=== PATIENT | male | born 1995 | race African-American/Black ===

== ENCOUNTER 2024-12-06 16:29 | Inpatient (IN) ==
[2024-12-06] MEDS: NACL 0.9% W/KCL 20MEQ 1,000 ML IV SCH ×3 (17:40→23:24)
[2024-12-06] MEDS: INSULIN REGULAR, HUMAN 50 UNIT in 0.9 % SODIUM CHLORIDE 99.5 ML IV SCH (17:57)
[2024-12-06 18:06] LABS: Bacteria,Urine Rare /hpf (0); Bilirubin,Urine Small mg/dL (Negative); Color,Urine Yellow; Glucose,Urine (UA) 500 mg/dL (Negative); Ketones,Urine >=160 mg/dL (Negative); Leukocyte Esterase,Urine Negative /uL (Negative); PH,Urine 5.5 (5.0-9.0); Protein,Urine 30 mg/dL (Negative); Specific Gravity,Urine 1.015 (1.000-1.035); Urobilinogen,Urine Normal
[2024-12-06 18:08] LABS: Anion Gap 30.0 (8.0-16.0); Blood Urea Nitrogen 13 mg/dL (6-20); Calcium 10.0 mg/dL (8.6-10.4); Carbon Dioxide 15 mmol/L (22-30); Chloride 91 mmol/L (96-108); Glucose 643 mg/dL (70-105); Potassium 3.8 mmol/L (3.3-5.1); Sodium 136 mmol/L (133-145)
[2024-12-06] MEDS: INSULIN REGULAR, HUMAN 1 UNIT/0.01 ML UNIT IV ONE (18:22)
[2024-12-06] MEDS ORDERED: NACL 0.9% W/KCL 20MEQ 1,000 ML IV SCH (18:45)
[2024-12-06] MEDS: MAG HYDROX/AL HYDROX/SIMETH 30 ML ORAL.SUSP PO ONE (19:02)
[2024-12-06] MEDS: ONDANSETRON 4 MG/2 ML VIAL IV ONE (19:02)
[2024-12-06] MEDS: FAMOTIDINE 20 MG TABLET PO ONE (19:02)
[2024-12-06] MEDS ORDERED: POTASSIUM CHLORIDE 40 MEQ in DEXTROSE 5% IN WATER 500 ML IV PRN (19:33)
[2024-12-06] MEDS ORDERED: MAGNESIUM SULFATE 2 GM/50 ML BAG IV PRN (19:33)
[2024-12-06] MEDS ORDERED: POTASSIUM CHLORIDE 20 MEQ TABLET PO PRN (19:33)
[2024-12-06] MEDS ORDERED: IPRATROPIUM/ALBUTEROL 3 ML AMPUL.NEB NEB PRN (19:33)
[2024-12-06] MEDS ORDERED: ONDANSETRON 4 MG/2 ML VIAL IV PRN (19:33)
[2024-12-06] MEDS ORDERED: SENNOSIDES 1 TABLET PO PRN (19:33)
[2024-12-06] MEDS: 0.9 % SODIUM CHLORIDE 1,000 ML IV SCH (19:46)
[2024-12-06] MEDS: METOCLOPRAMIDE 10 MG/2 ML VIAL IV PRN (20:38)
[2024-12-06] MEDS: INSULIN REGULAR, HUMAN 1 UNIT/0.01 ML UNIT ONE ×2 (20:59→21:51)
[2024-12-06] MEDS: NALTREXONE PO SCH (21:52)
[2024-12-06] MEDS: BUPROPION PO SCH (21:52)
[2024-12-06] MEDS: DOCUSATE SODIUM 100 MG CAPSULE PO SCH (21:52)
[2024-12-06] MEDS: ENOXAPARIN 40 MG/0.4 ML SYRINGE SQ SCH (22:00)
[2024-12-07] MEDS: INSULIN REGULAR, HUMAN 1 UNIT/0.01 ML UNIT ONE ×5 (01:31→23:15)
[2024-12-07] MEDS: DEXTROSE 5%-NS 1,000 ML IV SCH (02:45)
[2024-12-07] MEDS: GEMFIBROZIL 600 MG TABLET PO SCH (07:30)
[2024-12-07] MEDS: OMEPRAZOLE 20 MG CAPSULE PO SCH (08:04)
[2024-12-07 08:29] LABS: Basophils # (Auto) 0.04 K/mcL (0.00-0.30); Basophils % (Auto) 0.5 % (0.0-2.0); Eosinophils # (Auto) 0.13 K/mcL (0.00-0.70); Eosinophils % (Auto) 1.8 % (0.0-7.0); Hematocrit 41.5 % (40.1-51.0); Hemoglobin 13.2 g/dL (13.7-17.5); Lymphocytes # (Auto) 2.34 K/mcL (1.50-4.80); Lymphocytes % (Auto) 31.9 % (15.5-49.0); Mean Corpuscular HGB Conc 31.8 g/dL (31.0-36.0); Monocytes # (Auto) 0.95 K/mcL (0.10-0.90); Monocytes % (Auto) 13.0 % (1.0-12.0); Neutrophils % (Auto) 52.7 % (38.0-78.0); Platelet Count 347 K/mcL (140-440); RBC 5.67 M/mcL (4.63-6.08); WBC 7.3 K/mcL (4.5-11.0)
[2024-12-07 08:37] LABS: ALT/SGPT 92 U/L (<40); AST/SGOT 44 U/L (<40); Albumin 4.2 gm/dL (3.2-5.2); Albumin/Globulin Ratio 1.2 (1.0-2.3); Alkaline Phosphatase 55 U/L (39-117); Anion Gap 18.0 (8.0-16.0); Bilirubin,Direct 0.4 mg/dL (<0.3); Bilirubin,Total 0.9 mg/dL (0.1-1.0); Blood Urea Nitrogen 12 mg/dL (6-20); Calcium 9.3 mg/dL (8.6-10.4); Carbon Dioxide 21 mmol/L (22-30); Chloride 98 mmol/L (96-108); Globulin 3.5 gm/dL (2.2-3.7); Glucose 291 mg/dL (70-105); Phosphorous 2.9 mg/dL (2.5-4.5); Potassium 3.0 mmol/L (3.3-5.1); Sodium 137 mmol/L (133-145); Triglycerides 122 mg/dL (<150); Uric Acid 13.3 mg/dL (2.5-8.0)
[2024-12-07] MEDS ORDERED: CALCIUM CARBONATE 500 MG TAB.CHEW CHEWED PRN (09:05)
[2024-12-07] MEDS: POTASSIUM CHLORIDE 20 MEQ TABLET PO PRN (09:27)
[2024-12-07 10:01] LABS: Beta Hydroxybutyrate 3.71 mmol/L (<0.27)
[2024-12-07] MEDS: INSULIN REGULAR, HUMAN 1 UNIT/0.01 ML UNIT IV ONE ×3 (10:03→20:29)
[2024-12-07] MEDS: POTASSIUM CHLORIDE 20 MEQ in DEXTROSE 5% IN WATER 250 ML IV ONE (10:03)
[2024-12-07] MEDS: POTASSIUM CHLORIDE 10 MEQ/100 ML BAG IV SCH (10:05)
[2024-12-07] MEDS: BISMUTH SUBSALICYLATE 15 ML ORAL.SUSP PO ONE (12:10)
[2024-12-07 13:56] LABS: Anion Gap 21.0 (8.0-16.0); Blood Urea Nitrogen 12 mg/dL (6-20); Calcium 8.9 mg/dL (8.6-10.4); Carbon Dioxide 17 mmol/L (22-30); Chloride 97 mmol/L (96-108); Glucose 335 mg/dL (70-105); Potassium 3.0 mmol/L (3.3-5.1); Sodium 135 mmol/L (133-145)
[2024-12-07] MEDS: INSULIN GLARGINE, HUMAN 1 UNIT/0.01 ML SQ ONE ×3 (14:26→18:45)
[2024-12-07] MEDS: POTASSIUM CHLORIDE 40 MEQ in 0.45 % SODIUM CHLORIDE 1,000 ML IV SCH (14:51)
[2024-12-07] MEDS ORDERED: DEXTROSE 5%-1/2NS W/40MEQ KCL 1,000 ML IV PRN (15:15)
[2024-12-07 16:14] LABS: Beta Hydroxybutyrate 3.88 mmol/L (<0.27)
[2024-12-07 16:34] LABS: Anion Gap 19.0 (8.0-16.0); Blood Urea Nitrogen 11 mg/dL (6-20); Calcium 8.9 mg/dL (8.6-10.4); Carbon Dioxide 18 mmol/L (22-30); Chloride 99 mmol/L (96-108); Glucose 255 mg/dL (70-105); Potassium 3.1 mmol/L (3.3-5.1); Sodium 136 mmol/L (133-145)
[2024-12-07] MEDS: POTASSIUM CHLORIDE 20 MEQ TABLET PO ONE (18:09)
[2024-12-07] MEDS: POLYETHYLENE GLYCOL 3350 17 GM PACKET PO PRN (18:20)
[2024-12-07 21:21] LABS: Anion Gap 15.0 (8.0-16.0); Blood Urea Nitrogen 12 mg/dL (6-20); Calcium 8.9 mg/dL (8.6-10.4); Carbon Dioxide 19 mmol/L (22-30); Chloride 100 mmol/L (96-108); Glucose 356 mg/dL (70-105); Potassium 3.4 mmol/L (3.3-5.1); Sodium 134 mmol/L (133-145)
[2024-12-07 23:56] LABS: Anion Gap 14.0 (8.0-16.0); Blood Urea Nitrogen 11 mg/dL (6-20); Calcium 8.8 mg/dL (8.6-10.4); Carbon Dioxide 20 mmol/L (22-30); Chloride 101 mmol/L (96-108); Glucose 226 mg/dL (70-105); Potassium 3.2 mmol/L (3.3-5.1); Sodium 135 mmol/L (133-145)
[2024-12-08] MEDS: DEXTROSE 5%-1/2NS W/40MEQ KCL 1,000 ML IV PRN (00:53)
[2024-12-08] MEDS: POTASSIUM CHLORIDE 20 MEQ TABLET PO ONE ×3 (00:55→12:07)
[2024-12-08] MEDS: POTASSIUM CHLORIDE 20 MEQ/10 ML VIAL IV ONE ×2 (02:19→05:47)
[2024-12-08] MEDS: INSULIN REGULAR, HUMAN 1 UNIT/0.01 ML UNIT ONE ×4 (02:48→20:06)
[2024-12-08] MEDS: hydrALAZINE 20 MG/ML VIAL IV PRN (04:13)
[2024-12-08] MEDS ORDERED: DEXTROSE 31 GM ORAL.SUSP PO PRN (07:54)
[2024-12-08] MEDS ORDERED: DEXTROSE 50% 50 ML VIAL IV PRN (07:54)
[2024-12-08] MEDS ORDERED: INSULIN GLARGINE, HUMAN 1 UNIT/0.01 ML SQ SCH (09:00)
[2024-12-08] MEDS: INSULIN GLARGINE, HUMAN 1 UNIT/0.01 ML SQ SCH (09:15)
[2024-12-08 09:57] LABS: Basophils # (Auto) 0.04 K/mcL (0.00-0.30); Basophils % (Auto) 0.9 % (0.0-2.0); Eosinophils # (Auto) 0.08 K/mcL (0.00-0.70); Eosinophils % (Auto) 1.8 % (0.0-7.0); Hematocrit 38.4 % (40.1-51.0); Hemoglobin 12.2 g/dL (13.7-17.5); Lymphocytes # (Auto) 1.63 K/mcL (1.50-4.80); Lymphocytes % (Auto) 35.7 % (15.5-49.0); Mean Corpuscular HGB Conc 31.8 g/dL (31.0-36.0); Monocytes # (Auto) 0.59 K/mcL (0.10-0.90); Monocytes % (Auto) 12.9 % (1.0-12.0); Neutrophils % (Auto) 48.3 % (38.0-78.0); Platelet Count 302 K/mcL (140-440); RBC 5.25 M/mcL (4.63-6.08); WBC 4.6 K/mcL (4.5-11.0)
[2024-12-08 10:19] LABS: ALT/SGPT 71 U/L (<40); AST/SGOT 41 U/L (<40); Albumin 3.5 gm/dL (3.2-5.2); Albumin/Globulin Ratio 1.3 (1.0-2.3); Alkaline Phosphatase 50 U/L (39-117); Anion Gap 13.0 (8.0-16.0); Bilirubin,Direct 0.3 mg/dL (<0.3); Bilirubin,Total 0.8 mg/dL (0.1-1.0); Blood Urea Nitrogen 8 mg/dL (6-20); Calcium 8.5 mg/dL (8.6-10.4); Carbon Dioxide 20 mmol/L (22-30); Chloride 101 mmol/L (96-108); Globulin 2.8 gm/dL (2.2-3.7); Glucose 267 mg/dL (70-105); Phosphorous 1.4 mg/dL (2.5-4.5); Potassium 3.3 mmol/L (3.3-5.1); Sodium 134 mmol/L (133-145); Triglycerides 113 mg/dL (<150); Uric Acid 8.8 mg/dL (2.5-8.0)
[2024-12-08] MEDS: INSULIN LISPRO 1 UNIT/0.01 ML UNIT SQ SCH (11:43)
[2024-12-08 12:10] LABS: Estimated Average Glucose(eAG) 292.0 mg/dL; Hemoglobin A1C 11.8 % Hgb (4.0-6.0)
[2024-12-08 12:30] LABS: Beta Hydroxybutyrate 1.26 mmol/L (<0.27)
[2024-12-08 14:15] LABS: Anion Gap 14.0 (8.0-16.0); Blood Urea Nitrogen 8 mg/dL (6-20); Calcium 8.9 mg/dL (8.6-10.4); Carbon Dioxide 19 mmol/L (22-30); Chloride 99 mmol/L (96-108); Glucose 291 mg/dL (70-105); Potassium 3.5 mmol/L (3.3-5.1); Sodium 132 mmol/L (133-145)
[2024-12-08] MEDS ORDERED: DEXTROSE 5%-1/2NS W/40MEQ KCL 1,000 ML IV PRN (14:22)
[2024-12-08] MEDS: INSULIN GLARGINE, HUMAN 1 UNIT/0.01 ML SQ ONE ×3 (14:38→19:44)
[2024-12-08] MEDS: INSULIN REGULAR, HUMAN 1 UNIT/0.01 ML UNIT IV ONE ×2 (14:39→19:43)
[2024-12-08] MEDS: POTASSIUM PHOSPHATE 40 MEQ in DEXTROSE 5% IN WATER 500 ML IV ONE (15:35)
[2024-12-08] MEDS: DEXTROSE 5%-1/2NS W/40MEQ KCL 1,000 ML IV SCH (17:41)
[2024-12-08 18:35] LABS: Anion Gap 13.0 (8.0-16.0); Blood Urea Nitrogen 7 mg/dL (6-20); Calcium 8.7 mg/dL (8.6-10.4); Carbon Dioxide 20 mmol/L (22-30); Chloride 98 mmol/L (96-108); Glucose 260 mg/dL (70-105); Potassium 3.3 mmol/L (3.3-5.1); Sodium 131 mmol/L (133-145)
[2024-12-08 19:09] LABS: Beta Hydroxybutyrate 0.25 mmol/L (<0.27)
[2024-12-09] MEDS: INSULIN LISPRO 1 UNIT/0.01 ML UNIT SQ PRN (00:52)
[2024-12-09] MEDS: INSULIN LISPRO 1 UNIT/0.01 ML UNIT SQ ONE ×4 (00:55→04:47)
[2024-12-09 06:30] LABS: Basophils # (Auto) 0.03 K/mcL (0.00-0.30); Basophils % (Auto) 0.7 % (0.0-2.0); Eosinophils # (Auto) 0.13 K/mcL (0.00-0.70); Eosinophils % (Auto) 2.8 % (0.0-7.0); Hematocrit 37.1 % (40.1-51.0); Hemoglobin 12.1 g/dL (13.7-17.5); Lymphocytes # (Auto) 1.89 K/mcL (1.50-4.80); Lymphocytes % (Auto) 41.2 % (15.5-49.0); Mean Corpuscular HGB Conc 32.6 g/dL (31.0-36.0); Monocytes # (Auto) 0.60 K/mcL (0.10-0.90); Monocytes % (Auto) 13.1 % (1.0-12.0); Neutrophils % (Auto) 41.8 % (38.0-78.0); Platelet Count 315 K/mcL (140-440); RBC 5.22 M/mcL (4.63-6.08); WBC 4.6 K/mcL (4.5-11.0)
[2024-12-09] MEDS ORDERED: INSULIN LISPRO 1 UNIT/0.01 ML UNIT SQ PRN (06:39)
[2024-12-09 07:02] LABS: ALT/SGPT 76 U/L (<40); AST/SGOT 48 U/L (<40); Albumin 3.5 gm/dL (3.2-5.2); Albumin/Globulin Ratio 1.3 (1.0-2.3); Alkaline Phosphatase 47 U/L (39-117); Anion Gap 13.0 (8.0-16.0); Bilirubin,Direct 0.4 mg/dL (<0.3); Bilirubin,Total 0.9 mg/dL (0.1-1.0); Blood Urea Nitrogen 6 mg/dL (6-20); Calcium 8.6 mg/dL (8.6-10.4); Carbon Dioxide 22 mmol/L (22-30); Chloride 100 mmol/L (96-108); Globulin 2.7 gm/dL (2.2-3.7); Glucose 214 mg/dL (70-105); Phosphorous 2.5 mg/dL (2.5-4.5); Potassium 2.9 mmol/L (3.3-5.1); Sodium 135 mmol/L (133-145); Triglycerides 93 mg/dL (<150); Uric Acid 7.7 mg/dL (2.5-8.0)
[2024-12-09] MEDS ORDERED: INSULIN GLARGINE, HUMAN 1 UNIT/0.01 ML SQ SCH (09:00)
[2024-12-09] MEDS: POTASSIUM CHLORIDE 20 MEQ TABLET PO ONE (09:21)
[2024-12-09] MEDS: POTASSIUM CHLORIDE 40 MEQ in DEXTROSE 5% IN WATER 500 ML IV ONE (09:21)
[2024-12-09] MEDS: MAGNESIUM SULFATE 2 GM/50 ML BAG IV ONE (09:21)
[2024-12-09] MEDS: LOSARTAN 50 MG TABLET PO SCH (09:21)
[2024-12-09] MEDS: INSULIN GLARGINE, HUMAN 1 UNIT/0.01 ML SQ SCH (09:22)
[2024-12-09] MEDS: INSULIN LISPRO 1 UNIT/0.01 ML UNIT SQ SCH ×3 (09:22→17:06)
[2024-12-09] MEDS ORDERED: INSULIN LISPRO 1 UNIT/0.01 ML UNIT SQ SCH ×2 (11:30→12:00)
[2024-12-09] MEDS: POTASSIUM CHLORIDE 20 MEQ TABLET PO SCH (12:07)
[2024-12-09 14:23] LABS: Potassium 3.6 mmol/L (3.3-5.1)
[2024-12-09 22:00] LABS: Phosphorous 2.4 mg/dL (2.5-4.5); Potassium 3.3 mmol/L (3.3-5.1)
[2024-12-09] MEDS: NEUTRA PHOS 1 PACKET PO SCH (23:45)
[2024-12-10] MEDS: NEUTRA PHOS 1 PACKET ONE ×2 (00:34→04:45)
[2024-12-10] MEDS: POTASSIUM CHLORIDE 20 MEQ TABLET PO ONE (00:34)
[2024-12-10] MEDS: POTASSIUM PHOSPHATE 40 MEQ in DEXTROSE 5% IN WATER 500 ML IV ONE (00:34)
[2024-12-10 06:25] LABS: Basophils # (Auto) 0.04 K/mcL (0.00-0.30); Basophils % (Auto) 1.0 % (0.0-2.0); Eosinophils # (Auto) 0.16 K/mcL (0.00-0.70); Eosinophils % (Auto) 4.1 % (0.0-7.0); Hematocrit 36.2 % (40.1-51.0); Hemoglobin 11.8 g/dL (13.7-17.5); Lymphocytes # (Auto) 1.60 K/mcL (1.50-4.80); Lymphocytes % (Auto) 40.9 % (15.5-49.0); Mean Corpuscular HGB Conc 32.6 g/dL (31.0-36.0); Monocytes # (Auto) 0.45 K/mcL (0.10-0.90); Monocytes % (Auto) 11.5 % (1.0-12.0); Neutrophils % (Auto) 41.7 % (38.0-78.0); Platelet Count 323 K/mcL (140-440); RBC 5.05 M/mcL (4.63-6.08); WBC 3.9 K/mcL (4.5-11.0)
[2024-12-10 07:33] LABS: ALT/SGPT 95 U/L (<40); AST/SGOT 70 U/L (<40); Albumin 3.5 gm/dL (3.2-5.2); Albumin/Globulin Ratio 1.3 (1.0-2.3); Alkaline Phosphatase 49 U/L (39-117); Anion Gap 13.0 (8.0-16.0); Bilirubin,Direct 0.3 mg/dL (<0.3); Bilirubin,Total 0.8 mg/dL (0.1-1.0); Blood Urea Nitrogen 9 mg/dL (6-20); Calcium 8.6 mg/dL (8.6-10.4); Carbon Dioxide 23 mmol/L (22-30); Chloride 99 mmol/L (96-108); Globulin 2.7 gm/dL (2.2-3.7); Glucose 294 mg/dL (70-105); Phosphorous 4.6 mg/dL (2.5-4.5); Potassium 3.6 mmol/L (3.3-5.1); Sodium 135 mmol/L (133-145); Triglycerides 101 mg/dL (<150); Uric Acid 5.7 mg/dL (2.5-8.0)
[2024-12-10] MEDS: INSULIN LISPRO 1 UNIT/0.01 ML UNIT SQ SCH ×4 (07:54→16:34)
[2024-12-10] MEDS: INSULIN GLARGINE, HUMAN 1 UNIT/0.01 ML SQ SCH (08:06)
[2024-12-10] MEDS ORDERED: INSULIN GLARGINE, HUMAN 1 UNIT/0.01 ML SQ SCH (09:00)
[2024-12-11 06:10] LABS: Basophils # (Auto) 0.03 K/mcL (0.00-0.30); Basophils % (Auto) 0.7 % (0.0-2.0); Eosinophils # (Auto) 0.15 K/mcL (0.00-0.70); Eosinophils % (Auto) 3.4 % (0.0-7.0); Hematocrit 36.5 % (40.1-51.0); Hemoglobin 11.8 g/dL (13.7-17.5); Lymphocytes # (Auto) 1.96 K/mcL (1.50-4.80); Lymphocytes % (Auto) 44.1 % (15.5-49.0); Mean Corpuscular HGB Conc 32.3 g/dL (31.0-36.0); Monocytes # (Auto) 0.50 K/mcL (0.10-0.90); Monocytes % (Auto) 11.3 % (1.0-12.0); Neutrophils % (Auto) 39.8 % (38.0-78.0); Platelet Count 345 K/mcL (140-440); RBC 5.02 M/mcL (4.63-6.08); WBC 4.4 K/mcL (4.5-11.0)
[2024-12-11 06:59] LABS: ALT/SGPT 115 U/L (<40); AST/SGOT 91 U/L (<40); Albumin 3.4 gm/dL (3.2-5.2); Albumin/Globulin Ratio 1.3 (1.0-2.3); Alkaline Phosphatase 57 U/L (39-117); Anion Gap 13.0 (8.0-16.0); Bilirubin,Direct 0.3 mg/dL (<0.3); Bilirubin,Total 0.6 mg/dL (0.1-1.0); Blood Urea Nitrogen 12 mg/dL (6-20); Calcium 8.8 mg/dL (8.6-10.4); Carbon Dioxide 23 mmol/L (22-30); Chloride 101 mmol/L (96-108); Globulin 2.7 gm/dL (2.2-3.7); Glucose 194 mg/dL (70-105); Phosphorous 5.0 mg/dL (2.5-4.5); Potassium 3.3 mmol/L (3.3-5.1); Sodium 137 mmol/L (133-145); Triglycerides 94 mg/dL (<150); Uric Acid 4.9 mg/dL (2.5-8.0)
[2024-12-11] MEDS: POTASSIUM CHLORIDE 20 MEQ TABLET PO ONE (08:24)
== END 2024-12-11 13:50 | disposition home or self-care (01) | DRG 638 ==
LOC: ED 16:29 → ICU 19:30
PROVIDERS: ADMIT Internal Medicine; ATTEND Student in an Organized Health Care Education/Training Program